=== PATIENT | male | born 1945 | race Caucasian/White ===

== ENCOUNTER 2019-07-05 07:51 | Outpatient (CLI) | payer MEDICARE, BC ==
--- NOTE | 2019-07-05 08:51 | ULT ---
EXAM: US Abdominal Aorta PROVIDED CLINICAL HISTORY: Screening evaluation for abdominal aortic aneurysm COMPARISON: None FINDINGS: There is limited evaluation of the abdominal aorta, but the abdominal aorta where visualized does gibran ear normal in caliber. Proximal abdominal aorta measures approximately 2.3 cm in diameter with the mid abdominal aorta measuring 2.5 cm in diameter, and the distal abdominal aorta measures approximate ly 1.5 cm in diameter. Doppler evaluation of the abdominal aorta does demonstrate arterial flow. IMPRESSION: Portions of the abdominal aorta are obscured due to shadowing from bowel gas and depth of the abdomin al aorta from the skin surface, but no definite abdominal aortic aneurysm is visualized.
== END 2019-07-05 07:52 | disposition home or self-care (01) ==
LOC: NAV ULT 07:51
PROVIDERS: ATTEND Family Medicine
DX: Z13.6 Encounter for screening for cardiovascular disorders (principal)
CPT/HCPCS: 76775